=== PATIENT | male | born 1950 | race Caucasian/White ===

== ENCOUNTER 2016-11-04 12:16 | Day surgery (SDC) | payer MEDICARE, OTHER ==
[2016-11-02 11:41] LABS: HEMOGLOBIN 16.7 g/dL (13.6-17.8)
[2016-11-02 11:42] LABS: HEMATOCRIT 47.6 % (40.0-51.0)
--- NOTE | ~2016-11-04 | OP ---
Record Of Operation [facility] [address] [place]. [address] NAME: JENNIFER WHEATLEY : 52 [place] [facility] [place] [id number] AGE: 66 ADM/REG DATE : 11/04/16 MR#: [id number] REPORT SERV DATE: 11/04/16 DICTATED BY: Joseph FARFAN DATE: 11/04/16 REPORT STATUS : Draft TRANSCRIBED BY: MODL DATE: 11/04/16 DATE OF PROCEDURE: 11/04/2016 PREOPERATIVE DIAGNOSIS: Left distal ureteral stone. POSTOPERATIVE DIAGNOSIS: Left distal ureteral stone. PROCEDURE: Cystoscopy, left retrograde pyelography, ureteroscopy, laser lithotripsy, basket stone extraction, double-J stent placement. SURGEON: Joseph Farfan M.D. ANESTHESIA: General endotracheal. COMPLICATIONS: None. DRAINS: 7-Micronesian x 22 cm Contour double-J stent. BRIEF HISTORY: Mr. Wheatley is a 66-year-old white male with a history of recurrent stone disease. He had lithotripsy in the fall for a left proximal ureteral stone with a retreatment. He presented recently and it appeared to me that he had a residual or reduced distal 6 mm fragment. He was having no symptoms, who wanted confirmation, so a CT was performed to confirm such. He then began to have pain and we decided to proceed with endoscopic management. The risks of bleeding, infection, anesthesia, injury to adjacent organs, inability to access ureter, need for postoperative stent with its attendant misery were all discussed. There were no unanswered questions. DESCRIPTION OF PROCEDURE: Under excellent general anesthesia, the patient was prepped and draped in a standard lithotomy position. Cystoscopy was performed with a 30-degree lens, revealed a normal urethra. The posterior urethra showed some lateral lobe BPH. Inspection of the bladder revealed fullness of the left ureter without tumors, stones, or foreign bodies. I inserted a 5-Micronesian open-ended catheter and through that, an angled Glidewire was inserted into the ureter. It only bypassed the stone with difficulty, but was confirmed to be in the proximal collecting system. I then alongside the wire inserted a short rigid ureteroscope and with deliberation, was able to access the distal ureter and a stone that appeared at least 6 mm may be larger, I did not think it could be removed primarily. I took the 100 watt laser with a 200 micron laser fiber and fragmented the stone into extractable or passable fragments. I then retrieved the two largest pieces for analysis and one piece was left in the bladder. There was more ureteral trauma that I would have expected with this laser and on retrograde pyelography, a small amount of extravasation was seen. I was able to dilutely opacify the collecting system and I retrofitted the wire in the cystoscope. I placed a 7-Micronesian x 22 cm Contour double-J stent which coiled nicely in the renal pelvis and bladder. I think due to the impacted stone and a minor amount of extravasation, I would like this stent to be in at least ten days. I could remove it in my office in ten to fourteen days. I plan to discharge Mr. Wheatley as an outpatient with the following instructions. Record Of Operation [facility] [id number] [facility] [place]. [address] NAME: JENNIFER WHEATLEY : 52 [place]US [place] [facility] [place]#: [id number] AGE: 66 ADM/REG DATE : 11/04/16 MR#: [id number] REPORT SERV DATE: 11/04/16 DICTATED BY: Joseph FARFAN DATE: 11/04/16 REPORT STATUS : Draft TRANSCRIBED BY: GABRIELLE DATE: 11/04/16 DISCHARGE INSTRUCTIONS: 1. Home today. Call for any problems. 2. Percocet 5/325 one to two p.o. every four hours p.r.n. pain, #25. 3. Pyridium 200 mg one p.o. t.i.d. p.r.n. bladder pain, #15 with three refills. 4. I left a Rivera in him at the end of the case and planned to remove it prior to discharge. 5. Follow up in my office in ten to fourteen days for cysto stent removal. Alternatively if he preferred to do this in the operating room, that could be arranged as well. MARISA/GABRIELLE Joseph Farfan M.D. / [id number] CC: Berny Vegak Lopes, M.D.
[~2016-11-04 12:16] MED LIST: ADDER10 PO; DIL2TAB PO; DOCUSOFT S100 MG PO; ENDOCET1 TAB PO; FLOMAX4 PO; K500 PO; LORTAB 5 PO; MOBIC15 MG PO; T PO; ZOL100 PO
[2016-11-10 19:36] LABS: STONE COMPOSITION TWO DNR (())
== END 2016-11-04 20:06 | disposition home or self-care (01) ==
LOC: SDC 12:16
PROC: 0T768DZ Dilation of Right Ureter with Intraluminal Device, Via Natural or Artificial Opening Endoscopic (ICD-10-PCS; 2016-11-04)
PROC: 0TF68ZZ Fragmentation in Right Ureter, Via Natural or Artificial Opening Endoscopic (ICD-10-PCS; principal; 2016-11-04 13:45)
DX: N20.1 Calculus of ureter (principal); F32.9 Major depressive disorder, single episode, unspecified; E78.5 Hyperlipidemia, unspecified; E66.9 Obesity, unspecified; F90.9 Attention-deficit hyperactivity disorder, unspecified type; N52.01 Erectile dysfunction due to arterial insufficiency; Z87.442 Personal history of urinary calculi
CPT/HCPCS: 74420; 82365; 85014; 85018; 93005; C1758; C1769; C2617; J2250; J2370; J2405; J2710; J3010; Q9967